=== PATIENT | female | born 2005 | race Caucasian/White ===

== ENCOUNTER 2024-07-24 13:24 | Emergency (ER) | payer OTHER ==
[~2024-07-24] VITALS: Ht 162.6 cm; Wt 68.0 kg
[~2024-07-24 13:24] MED LIST: PENICILLIN V P500 MG PO; PERIDEX473 M1 MM
--- OUTSIDE RECORDS SUMMARY | 2024-07-24 13:30 | XMS ---
PreManage Notification: SHIVANI WOODS Security Nightclub Manager Events No recent Security Events currently on file CRITERIA MET - [facility] - 2 Visits in 30 Days CARE PROVIDERS -, [facility] Dentist: Learning And Development Associate [facility] PHONE: [phone] -[place]- Dentist: Learning And Development Associate Current [facility] PHONE: [phone] [facility]: [facility] FAMILY PHONE: [phone] Mirza has no Care Guidelines for this patient. E.D. VISIT COUNT (12 MO.) [address] [facility] TOTAL 3 NOTE: Visits indicate total known visits. ED/UCC VISIT TRACKING (12 MO.) 07/24/2024 13:24 [facility] [place] TYPE: Emergency COMPLAINT: - VOMITING 07/23/2024 16:25 [facility] [place] TYPE: Emergency COMPLAINT: - VOMITING 12/11/2023 16:26 [facility] [place] TYPE: Emergency COMPLAINT: - COLD SYMPTOMS DIAGNOSES: - Chronic gingivitis, plaque induced INPATIENT VISIT TRACKING (12 MO.) No inpatient visits to display in this time frame [email or web address]
[2024-07-24] MEDS ORDERED: ondansetron HCL 4 MG/2 ML VIAL IV ONE (14:15)
[2024-07-24 14:21] LABS: BASOPHILS 0.2 % (0-2); EOSINOPHILS 0.1 % (0-6); HEMATOCRIT 38.6 % (35.0-50.0); HEMOGLOBIN 13.6 g/dL (12.0-18.0); LYMPHOCYTES 19.8 % (24-44); MCH 31.8 (27-36); MCHC 35.1 g/dl (30-36); MCV 90.5 fl (81-99); NEUTROPHILS 73.9 % (39-80); PLATELET COUNT 292 K/uL (140-440); RBC 4.27 M/ul (4.3-5.7); RDW 12.3 (10.5-15.0)
[2024-07-24 14:37] LABS: ALBUMIN 4.7 g/dL (3.4-5.0); ALBUMIN/GLOBULIN RATIO 1.52 (1.1-2.4); ANION GAP 19.3 (7-21); BILIRUBIN, TOTAL 0.9 mg/dL (0.2-1.0); CALCIUM 9.5 mg/dL (8.5-10.1); CREATININE, SERUM 0.6 mg/dL (0.55-1.02); MAGNESIUM 1.9 mg/dL (1.8-2.4); POTASSIUM 3.3 mmol/L (3.5-5.1); PROTEIN, TOTAL 7.8 g/dL (6.4-8.2)
[2024-07-24 14:40] LABS: BILIRUBIN, URINE NEGATIVE (negative); BLOOD/HGB, URINE NEGATIVE (Negative); KETONE, URINE >=80 (Negative); LEUK ESTERASE, URINE TRACE (negative); NITRITE, URINE NEGATIVE (negative)
[2024-07-24 14:45] LABS: BACTERIA, URINE 1+ /hpf (negative); CASTS, URINE NONE SEEN \\lpf; COLLECTION TYPE, URINE CLEAN CATCH; CRYSTALS, URINE NONE SEEN (0-1+); EPITHELIAL CELLS, URINE SQUAMOUS 2+ /lpf (0-1+); RED BLOOD CELLS, URINE 0-1 /hpf (0-5); REFLEX CULTURE, URINE No (No)
[2024-07-24] MEDS ORDERED: DICLEGIS DR 101 EACH PO (15:22)
[2024-07-24] MEDS ORDERED: ONDANSETRON ODT4 MG PO (15:22)
[2024-07-24] MEDS ORDERED: CEPHALEXIN500 MG PO (15:22)
[2024-07-24] MEDS ORDERED: CEPHALEXIN MONOHYDRATE 500 MG CAP PO ONE (15:30)
[2024-07-24 15:34] VITALS: BP 112/70
== END 2024-07-24 15:37 | disposition home or self-care (01) ==
LOC: ED 13:24
PROVIDERS: Emergency Medicine
DX: O21.9 Vomiting of pregnancy, unspecified (principal); Z3A.01 Less than 8 weeks gestation of pregnancy; Z79.899 Other long term (current) drug therapy
CPT/HCPCS: 36415; 80053; 81001; 83735; 84703; 85025; 96374; 99284-25; A9270; J2405

== ENCOUNTER 2024-09-20 16:09 | Emergency (ER) | payer OTHER ==
[~2024-09-20] VITALS: Ht 162.6 cm; Wt 65.8 kg
--- OUTSIDE RECORDS SUMMARY | ~2024-09-20 | XMS | Continuity of Care Document ---
Demographics + + + | Address | [address] | | | [place] [address] | + + + | Preferred Language | Unknown | + + + | Marital Status | Unknown | + + + | Rastafarian Affiliation | Unknown | + + + | Race | White | + + + | Ethnic Group | Not or | + + + Author + + + | Author | [facility] | + + + | Organization | [facility] | + + + | Address | [address] | | | [place] [address] | + + + | Phone | | + + + Care Team Providers + + + + | Care Dry Man Name | Role | Phone | + + + + Unavailable | Unavailable | + + + + Allergies No information. Encounters No information. Functional Status No information. Immunizations No information. Medications No information. Problems + + + + | date | description | facility | + + + + | 2024-08-13 12:12:25 | Endometriosis, unspecified | [facility] | | | | | + + + + | 2024-08-15 02:30:17 | Endometriosis, unspecified | [facility] | | | | | + + + + Procedures No information. Results/Labs No information. Social History +--------+ + + | date | description | facility | +--------+ + + Vital Signs No information."
[~2024-09-20 16:09] MED LIST changes: +CEPHALEXIN500 MG PO; +DICLEGIS DR 101 EACH PO; +ONDANSETRON ODT4 MG PO
--- OUTSIDE RECORDS SUMMARY | 2024-09-20 16:16 | XMS ---
PreManage Notification: SHIVANI WOODS Security Telemetry Registered Nurse Events No recent Security Events currently on file CRITERIA MET - Group Notification CARE PROVIDERS -, [facility]ist: Pharmacists [facility] PHONE: [phone] -[place]- Dentist: Pharmacists Current [facility] PHONE: [phone] [facility]: [facility] Current FAMILY PHONE: [phone] Mirza has no Care Guidelines for this patient. E.D. VISIT COUNT (12 MO.) [address] [facility] TOTAL 4 NOTE: Visits indicate total known visits. ED/UCC VISIT TRACKING (12 MO.) 09/20/2024 16:09 [facility] [place] TYPE: Emergency COMPLAINT: - COLD SYMPTOMS 07/24/2024 13:24 [facility] [place] TYPE: Emergency COMPLAINT: - VOMITING DIAGNOSES: - Less than 8 weeks gestation of - Nausea with vomiting, unspecified - Other terminal supervisor (current) drug therapy - Vomiting of , unspecified 07/23/2024 16:25 [facility] [place] TYPE: Emergency COMPLAINT: - VOMITING 12/11/2023 16:26 [facility] [place] TYPE: Emergency COMPLAINT: - COLD SYMPTOMS DIAGNOSES: - Chronic gingivitis, plaque induced INPATIENT VISIT TRACKING (12 MO.) No inpatient visits to display in this time frame [id number]
[2024-09-20] MEDS ORDERED: AMOX TR-K CLV1 EAC1 PO (16:43)
[2024-09-20] MEDS ORDERED: FLONASE ALLERG9.9 ML NAS (16:43)
[2024-09-20 16:55] VITALS: BP 120/72
== END 2024-09-20 16:56 | disposition home or self-care (01) ==
LOC: ED 16:09
DX: R05.9 Cough, unspecified (principal)
CPT/HCPCS: 99283

== ENCOUNTER 2025-03-25 05:24 | Inpatient (IN) | payer OTHER | END 2025-03-28 11:05 | disposition home or self-care (01) | DRG 768 | LOC: FBC 05:24 → MS 03-26 16:08 → FBC 03-26 16:28 | PROVIDERS: ADMIT Advanced Practice Midwife | PROC: 4A1HXCZ Monitoring of Products of Conception, Cardiac Rate, External Approach (ICD-10-PCS; 2025-03-25) | PROC: 3E0P7VZ Introduction of Hormone into Female Reproductive, Via Natural or Artificial Opening (ICD-10-PCS; 2025-03-25) | PROC: 10907ZC Drainage of Amniotic Fluid, Therapeutic from Products of Conception, Via Natural or Artificial Opening (ICD-10-PCS; 2025-03-25) | PROC: 00HU33Z Insertion of Infusion Device into Spinal Canal, Percutaneous Approach (ICD-10-PCS; 2025-03-25) | PROC: 3E0R3BZ Introduction of Anesthetic Agent into Spinal Canal, Percutaneous Approach (ICD-10-PCS; 2025-03-25) | PROC: 10H07YZ Insertion of Other Device into Products of Conception, Via Natural or Artificial Opening (ICD-10-PCS; 2025-03-25) | PROC: 10E0XZZ Delivery of Products of Conception, External Approach (ICD-10-PCS; principal; 2025-03-26) | PROC: 0DQR0ZZ Repair Anal Sphincter, Open Approach (ICD-10-PCS; 2025-03-26) | DX: O48.0 Post-term pregnancy (principal); Z37.0 Single live birth; O41.1230 Chorioamnionitis, third trimester, not applicable or unspecified; O70.20 Third degree perineal laceration during delivery, unspecified; Z3A.40 40 weeks gestation of pregnancy; O99.824 Streptococcus B carrier state complicating childbirth; O69.81X0 Labor and delivery complicated by cord around neck, without compression, not applicable or unspecified; O76 Abnormality in fetal heart rate and rhythm complicating labor and delivery; N80.9 Endometriosis, unspecified; O99.892 Other specified diseases and conditions complicating childbirth ==

== ENCOUNTER 2025-04-14 11:45 | Emergency (ER) | payer OTHER ==
[~2025-04-14] VITALS: Ht 152.4 cm; Wt 75.8 kg
[~2025-04-14 11:45] MED LIST changes: +AMOX TR-K CLV1 EAC1 PO; +FLONASE ALLERG9.9 ML NAS
--- OUTSIDE RECORDS SUMMARY | 2025-04-14 11:52 | XMS ---
PreManage Notification: SHIVANI WOODS Security Protection Chief [employer] Events No recent Security Events currently on file CRITERIA MET - Group Notification CARE PROVIDERS -, [facility] Dentist: Machine Operator Helper [facility] PHONE: [phone] -[place]- Dentist: Machine Operator Helper [facility] PHONE: [phone] [facility]: [facility] Current FAMILY PHONE: [phone] Mirza has no Care Guidelines for this patient. E.D. VISIT COUNT (12 MO.) 4 [facility] TOTAL 4 NOTE: Visits indicate total known visits. ED/UCC VISIT TRACKING (12 MO.) 04/14/2025 11:45 [facility] [place] TYPE: Emergency COMPLAINT: - POST OP PROBLEM 09/20/2024 16:09 [facility] [place] TYPE: Emergency COMPLAINT: - COLD SYMPTOMS DIAGNOSES: - Cough, unspecified 07/24/2024 13:24 [facility] [place] TYPE: Emergency COMPLAINT: - VOMITING DIAGNOSES: - Less than 8 weeks gestation of - Nausea with vomiting, unspecified - Other moth exterminator (current) drug therapy - Vomiting of , unspecified 07/23/2024 16:25 [facility] [place] TYPE: Emergency COMPLAINT: - VOMITING INPATIENT VISIT TRACKING (12 MO.) 03/25/2025 05:24 [facility] [place] TYPE: [facility] COMPLAINT: - INDUCTION DIAGNOSES: - 40 weeks gestation of - Abnormality in heart rate and rhythm complicating labor and delivery - Chorioamnionitis, third trimester, not applicable or unspecified - Endometriosis, unspecified - Labor and delivery complicated by cord around neck, without compression, not applicable or unspecified - Other specified diseases and conditions complicating childbirth - Post-term - Single live - Streptococcus B carrier state complicating childbirth - Third degree perineal laceration during delivery, unspecified 03/21/2025 00:00 [facility] [place] TYPE: [facility] COMPLAINT: - OB DUE [id number]
[2025-04-14] MEDS ORDERED: IBUPROFEN800 MG PO (12:01)
[2025-04-14] MEDS ORDERED: IRON325 M1 PO (12:01)
[2025-04-14 12:29] LABS: BASOPHILS 0.7 % (0.1-1.2); EOSINOPHILS 1.8 % (0.7-5.8); LYMPHOCYTES 32.8 % (19.3-51.7); MCH 29.3 PG (25.6-32.2); MCHC 32.1 g/dL (32.2-35.5); MCV 91.3 fL (79.4-94.8); MONOCYTES 5.6 % (4.7-12.5); NEUTROPHILS 58.7 % (34.0-71.1); RBC 4.03 M/uL (3.93-5.22)
[2025-04-14 12:50] LABS: ALT (SGPT) 23.0 U/L (14-59); AST (SGOT) 13.0 U/L (15-37); GLOMERULAR FILTRATION RATE,EST 110.0 mL/min (>60); PROTEIN, TOTAL 7.7 g/dL (6.4-8.2); UREA NITROGEN 14.0 mg/dL (7-18)
[2025-04-14 16:34] LABS: SOURCE, WET MOUNT VAGINAL
[2025-04-14 16:36] LABS: BACTERIA, WET MOUNT NEGATIVE (NEGATIVE); RBC, WET MOUNT 1+ (NEGATIVE)
[2025-04-14 16:37] LABS: CLUE CELLS, WET MOUNT NEGATIVE (NEGATIVE); TRICHOMONAS, WET MOUNT NEGATIVE (NEGATIVE); WBC, WET MOUNT 3+ (NEGATIVE); YEAST, WET MOUNT NEGATIVE (NEGATIVE)
[2025-04-14 16:38] LABS: EPITHELIAL CELLS, WET MOUNT NEGATIVE (NEGATIVE)
[2025-04-14 16:45] VITALS: BP 121/75
[2025-04-14 18:00] LABS: N. GONORRRHOEAE BY PCR NOT DETECTED (NOT DETECT)
== END 2025-04-14 16:44 | disposition home or self-care (01) ==
LOC: ED 11:45
PROVIDERS: Emergency Medicine
DX: O90.89 Other complications of the puerperium, not elsewhere classified (principal); N89.8 Other specified noninflammatory disorders of vagina; R10.9 Unspecified abdominal pain; Z79.899 Other long term (current) drug therapy
CPT/HCPCS: 80053; 85025; 87070; 87205; 87210; 87491; 99284